=== PATIENT | female | born 1970 | race Caucasian/White ===

== ENCOUNTER 2016-12-24 19:59 | Emergency (ER) | payer BC ==
[2016-12-24 20:12] VITALS: BP 170/86
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
== END 2016-12-24 20:56 | disposition home or self-care (01) ==
LOC: UCCORT 19:59
DX: F41.9 Anxiety disorder, unspecified (principal); I10 Essential (primary) hypertension; F17.210 Nicotine dependence, cigarettes, uncomplicated
CPT/HCPCS: 99201; G0463

== ENCOUNTER 2019-03-22 18:26 | Emergency (ER) | payer BC ==
[2019-03-22 20:49] VITALS: BP 167/62
--- NOTE | 2019-03-22 21:12 | UC ---
Complaint Female HPI - HPI Summary HPI Summary: 48-year-old female presents with complaints of onset of dysuria, cloudy urine, hematuria yesterday. Patient is also requesting screening for sexually transmitted infections at this time. States she has been from her for quite a while but had decided to try to get back together and had vaginal intercourse with him approximately one week ago. She is concerned as she is unaware of his sexual partners while . Denies fever, chills, abdominal pain, nausea, vomiting, back or flank pain,urgency, vaginal discharge , vaginal lesions, or dyspareunia. - History Of Current Complaint Chief Complaint: UCGU Stated Complaint: URINARY Time Seen by Provider: 03/22/19 21:05 Hx Obtained From: Patient Hx Last Menstrual Period: unknown Pain Intensity: 0 - Allergies/Home Medications Allergies/Adverse Reactions: Allergies Allergy/AdvReac Type Severity Reaction Status Date / Time No Known Allergies Allergy Verified 03/22/19 20:49 PMH/Surg Hx/FS Hx/Imm Hx Cardiovascular History: Hypertension - Surgical History Surgical History: Yes Surgery Procedure, Year, and Place: tubal ligation. breast reduction. ablation - Family History Known Family History: Positive: Cardiac Disease, Hypertension, Diabetes - Social History Occupation: Employed Full-time Lives: With Family Alcohol Use: Occasionally Substance Use Type: None Smoking Status (MU): Heavy Every Day Tobacco Smoker Amount Used/How Often: 1 ppd Review of Systems All Other Systems Reviewed And Are Negative: Yes Constitutional: Negative: Fever, Chills Skin: Negative: Rash Respiratory: Positive: Negative Cardiovascular: Positive: Negative Gastrointestinal: Negative: Abdominal Pain, Vomiting, Nausea Genitourinary: Positive: Dysuria, Hematuria, Frequency. Negative: Urgency, Vaginal/Penile Itching, Vaginal/Penile Discharge, Ulceration/Lesion, Abnormal Bleeding Musculoskeletal: Positive: Negative Neurological: Positive: Negative Is Patient Immunocompromised?: No Physical Exam - Summary Physical Exam Summary: GENERAL APPEARANCE: Well developed, well nourished, alert and cooperative, and appears to be in no acute distress. CARDIAC: Normal S1 and S2. No S3, S4 or murmurs. Rhythm is regular. There is no peripheral edema, cyanosis or pallor. Extremities are warm and well perfused. Capillary refill is less than 2 seconds. Peripheral pulses intact. LUNGS: Clear to auscultation without rales, rhonchi, wheezing or diminished breath sounds. ABDOMEN: Positive bowel sounds. Soft, nondistended, nontender. No guarding or rebound. No masses or hepatosplenomegally. No CVA tenderness. MUSKULOSKELETAL: ROM intact to all extremities. No joint erythema or tenderness. Normal muscular development. Normal gait. SKIN: Skin normal color, texture and turgor with no lesions or eruptions. Triage Information Reviewed: Yes Vital Signs: Initial Vital Signs Temp 98.3 F 03/22/19 20:42 Pulse 86 03/22/19 20:42 Resp 18 03/22/19 20:42 BP 167/62 03/22/19 20:42 Pulse Ox 98 03/22/19 20:42 Vital Signs Reviewed: Yes Complaint Female Dx - Course Course Of Treatment: 48-year-old female presents with complaints of onset of dysuria, cloudy urine, hematuria yesterday. Patient is also requesting screening for sexually transmitted infections at this time. States she has been from her for quite a while but had decided to try to get back together and had vaginal intercourse with him approximately one week ago. She is concerned as she is unaware of his sexual partners while . Denies fever, chills, abdominal pain, nausea, vomiting, back or flank pain,urgency, vaginal discharge , vaginal lesions, or dyspareunia. Afebrile. Vital signs stable. Patient had an overall unremarkable exam. [id number] urinalysis showed 2+ leukocyte esterase and 2+ blood. Urine culture is pending. STI screening for gonorrhea, chlamydia, syphilis, and HIV were performed at the patient's request. She was counseled to avoid sexual intercourse until these results have returned and have recommended that she have follow-up testing as appropriate based on these results. I'll treat her empirically for a urinary tract infection with Macrobid 100 mg twice a day 10 days. She received the first dose of this in the clinic. She is to follow-up with her primary care provider in 3 days if symptoms are not improving. Anticipatory guidance and warning symptoms were reviewed with the patient. Verbalizes understanding and agrees with plan of care. - Differential Dx/Diagnosis Differential Diagnosis/HQI/PQRI: Pelvic Inflammatory Disease, Renal Colic, Sexually Transmitted Disease, Urinary Tract Infection Provider Diagnosis: UTI (urinary tract infection) Discharge ED - Sign-Out/Discharge Documenting (check all that apply): Patient Departure All imaging exams completed and their final reports reviewed: No Studies - Discharge Plan Condition: Stable Disposition: HOME Prescriptions: Nitrofurantoin Monohyd/M-Cryst [Macrobid 100 mg Capsule] 100 mg PO BID #9 cap Patient Education Materials: Urinary Tract Infection in Women (ED) Referrals: Enedina Nina PA [Primary Care Provider] - 3 Days Additional Instructions: Your urine test in the clinic today is suggestive of a urinary tract infection. We will start you on an antibiotic to treat for the infection. We will also send a urine culture today to see what bacteria grow out and make sure the antibiotic you were prescribed is appropriate to treat the infection. It will take 48-72 hours to get these results. We will contact you if there is any change in your treatment plan. Start Macrobid 100 mg 1 capsule twice a day for 5 days. You were given the first dose in the clinic. We have sent specimens to screen for possible sexually transmitted infections. It may take 48-72 hours for all these results to return. We will contact you if any of these tests are positive and start you on an appropriate treatment. Drink plenty of fluids. Avoid any sexual intercourse until your screening tests have returned. Follow up with your primary care provider in 3-5 days if symptoms persist. Seek immediate medical attention in the emergency room if you develop fever greater than 100.5 F, have severe abdominal pain, persistent vomiting, or any worsening of symptoms. - Billing Disposition and Condition Condition: STABLE Disposition: Home
[2019-03-22] MEDS ORDERED: Nitrofurantoin Macrocrystals* 50 MG CAP PO ONE (21:17)
[2019-03-23 14:15] LABS: HIV 4th Generation Nonreactive (Nonreactive)
[2019-03-24 13:09] LABS: Chlamydia trachomatis NAA Negative (Negative); Neisseria gonorrhoeae (GC) NAA Negative (Negative)
== END 2019-03-22 21:43 | disposition home or self-care (01) ==
LOC: UCCORT 18:26
DX: N39.0 Urinary tract infection, site not specified (principal); I10 Essential (primary) hypertension; F17.210 Nicotine dependence, cigarettes, uncomplicated
CPT/HCPCS: 36415; 81003; 86780; 87086; 87389; 87491; 87591; 99212; A9270-GY; G0463

== ENCOUNTER 2019-04-11 13:45 | Emergency (ER) | payer BC ==
[2019-04-11 14:33] VITALS: BP 155/65
--- NOTE | 2019-04-11 14:39 | UC ---
Complaint Female HPI - HPI Summary HPI Summary: Vaginal irritation, redness, swelling and mild itching started yesterday. Denies any discharge. Possible STD from partner? - History Of Current Complaint Chief Complaint: UCGeneralIllness Stated Complaint: PERSONAL Time Seen by Provider: 04/11/19 14:32 Hx Obtained From: Patient Hx Last Menstrual Period: uterine ablation ?: No Onset/Duration: Sudden Onset, Lasting Days Timing: Constant Severity Initially: Mild Severity Currently: Mild Pain Intensity: 2 - Allergies/Home Medications Allergies/Adverse Reactions: Allergies Allergy/AdvReac Type Severity Reaction Status Date / Time No Known Allergies Allergy Verified 04/11/19 14:27 Home Medications: Home Medications Ibuprofen TAB* [Motrin TAB* 400 MG] 400 mg PO Q6H PRN 04/11/19 [History Confirmed 04/11/19] PMH/Surg Hx/FS Hx/Imm Hx Previously Healthy: Yes - Surgical History Surgical History: Yes Surgery Procedure, Year, and Place: tubal ligation. breast reduction. ablation - Family History Known Family History: Positive: Cardiac Disease, Hypertension, Diabetes - Social History Alcohol Use: Occasionally Substance Use Type: None Smoking Status (MU): Heavy Every Day Tobacco Smoker Type: Cigarettes Amount Used/How Often: 1 ppd Review of Systems All Other Systems Reviewed And Are Negative: Yes Genitourinary: Positive: Vaginal/Penile Burning, Vaginal/Penile Tenderness Physical Exam Triage Information Reviewed: Yes Appearance: Well-Appearing, Well-Nourished, Pain Distress Vital Signs: Initial Vital Signs Temp 98.6 F 04/11/19 14:27 Pulse 89 04/11/19 14:27 Resp 16 04/11/19 14:27 BP 155/65 04/11/19 14:27 Pulse Ox 100 04/11/19 14:27 Vital Signs Reviewed: Yes Eye Exam: Normal ENT Exam: Normal Dental Exam: Normal Neck exam: Normal Respiratory Exam: Normal Respiratory: Positive: Chest non-tender, Lungs clear, Normal breath sounds Cardiovascular Exam: Normal Cardiovascular: Positive: RRR, No Murmur, Pulses Normal Abdomen Description: Positive: Nontender, No Organomegaly, Soft, CVA Tenderness (R) - neg, CVA Tenderness (L) - neg Bowel Sounds: Positive: Present Pelvic Exam: Positive: Other - deferred pelvic, urine obtained and patient self swabbed affirm Musculoskeletal Exam: Normal Neurological Exam: Normal Psychological Exam: Normal Skin Exam: Normal Complaint Female Dx - Course Course Of Treatment: hx obtained, exam performed ,meds reviewed, tested for STD and treated for vaginitits - Differential Dx/Diagnosis Differential Diagnosis/HQI/PQRI: Sexually Transmitted Disease Provider Diagnosis: Vaginitis Discharge ED - Sign-Out/Discharge Documenting (check all that apply): Patient Departure All imaging exams completed and their final reports reviewed: No Studies - Discharge Plan Condition: Stable Disposition: HOME Prescriptions: Fluconazole 150 MG TAB* [Diflucan 150 MG TAB*] 150 mg PO UC ONCE #1 tablet Patient Education Materials: Vaginitis (ED) Referrals: Enedina Nina PA [Primary Care Provider] - Additional Instructions: 1. take the medication as prescribed. 2. avoid sexual activity until results from test are obtained. 3. We call with any positive results, if you dont hear from us in 3 days, please give us a call for results. - Billing Disposition and Condition Condition: STABLE Disposition: Home - Attestation Statements Provider Attestation: I was available for consult. This patient was seen by the PATY. The patient was not presented to , seen by or examined by ca -Kalen Camarillo MD
--- NOTE | 2019-04-13 07:23 | UC ---
- Progress Note Progress Note: please call the pt. with her lab results + Gardnerella, + Trichomonas will call in Flagyl please have her partner be seen for treatment Course/Dx - Diagnoses Provider Diagnoses: Vaginitis Discharge ED - Sign-Out/Discharge Documenting (check all that apply): Patient Departure All imaging exams completed and their final reports reviewed: No Studies - Discharge Plan Condition: Stable Disposition: HOME Prescriptions: Fluconazole 150 MG TAB* [Diflucan 150 MG TAB*] 150 mg PO UC ONCE #1 tablet Patient Education Materials: Vaginitis (ED) Referrals: Enedina Nina PA [Primary Care Provider] - Additional Instructions: 1. take the medication as prescribed. 2. avoid sexual activity until results from test are obtained. 3. We call with any positive results, if you dont hear from us in 3 days, please give us a call for results. - Billing Disposition and Condition Condition: STABLE Disposition: Home
[2019-04-13 12:11] LABS: Chlamydia trachomatis NAA Negative (Negative); Neisseria gonorrhoeae (GC) NAA Negative (Negative)
== END 2019-04-11 15:18 | disposition home or self-care (01) ==
LOC: UCCORT 13:45
DX: N76.0 Acute vaginitis (principal)
CPT/HCPCS: 87480; 87491; 87510; 87591; 87660; 99212; G0463

== ENCOUNTER 2019-06-11 12:48 | Emergency (ER) | payer BC ==
--- NOTE | 2019-06-11 13:16 | UC ---
Complaint Female HPI - HPI Summary HPI Summary: 48 yo female presents with 2 concerns today. 1) She tells me that over the last 5 days she has had sinus pain/pressure/ congestion, sore throat, and intermittently productive cough with yellow phlegm. She has been taking mucinex OTC with no relief. Denies fever, chills, SOB. She smokes daily. 2) Over the last 2 days has noticed urinary burning and frequency. She has had UTIs in the past and this feels the same. She recently had intercourse with a new partner within the last week and is concerned about STDs. She is requesting an STD panel today. She denies abdominal pain, n/v, flank pain, vaginal bleeding or discharge. - History Of Current Complaint Stated Complaint: SINUS COMPLAINT,URINARY COMPLAINT Time Seen by Provider: 06/11/19 13:15 Hx Obtained From: Patient Hx Last Menstrual Period: uterine ablation Onset/Duration: Gradual Onset Severity Initially: Mild Severity Currently: Moderate Pain Intensity: 5 Pain Scale Used: 0-10 Numeric - Allergies/Home Medications Allergies/Adverse Reactions: Allergies Allergy/AdvReac Type Severity Reaction Status Date / Time No Known Allergies Allergy Verified 06/11/19 13:22 Home Medications: Home Medications Dm/PE/Acetaminophen/Chlorphenr [Flaca-Campbell Plus Cold &] 1 cap PO ONCE [History Confirmed 06/11/19] PMH/Surg Hx/FS Hx/Imm Hx Cardiovascular History: Hypertension - Surgical History Surgical History: Yes Surgery Procedure, Year, and Place: tubal ligation. breast reduction. ablation - Family History Known Family History: Positive: Cardiac Disease, Hypertension, Diabetes - Social History Occupation: Employed Full-time Lives: Alone Alcohol Use: Occasionally Substance Use Type: None Smoking Status (MU): Heavy Every Day Tobacco Smoker Type: Cigarettes Amount Used/How Often: 1 ppd Review of Systems All Other Systems Reviewed And Are Negative: No Constitutional: Positive: Negative Skin: Positive: Negative Eyes: Positive: Negative ENT: Positive: Sore Throat, Nasal Discharge, Sinus Congestion, Sinus Pain/ Tenderness Respiratory: Positive: Cough Cardiovascular: Positive: Negative Gastrointestinal: Positive: Negative Genitourinary: Positive: Dysuria Neurovascular: Positive: Negative Neurological: Positive: Negative Psychological: Positive: Negative Physical Exam - Summary Physical Exam Summary: GENERAL: NAD. WDWN. No pain distress. SKIN: No rashes, sores, lesions, or open wounds. HEENT: Head: AT/NC Eyes: EOM intact. Conjunctiva clear without inflammation or discharge. Ears: Hearing grossly normal. TMs intact, no bulging, erythema, or edema. Nose: Nasal mucosa mildly swollen and erythematous with yellow/ clear discharge. TTP maxillary > frontal sinus. Positive post nasal drip Throat: Posterior oropharynx without exudates, erythema, or tonsillar enlargement. Uvula midline. NECK: Supple. Nontender. No lymphadenopathy. CHEST: CTAB. No r/r/w. No accessory muscle use. Breathing comfortably and in no distress. CV: RRR. Pulses intact. ABDOMEN: Soft. NTTP. No distention or guarding. No CVA tenderness. Bowel sounds present NEURO: Alert. PSYCH: Age appropriate behavior. Triage Information Reviewed: Yes Vital Signs: Vital Signs: Temp Pulse Resp BP Pulse Ox 98.1 F 90 15 160/75 99 06/11/19 13:20 06/11/19 13:20 06/11/19 13:20 06/11/19 13:20 06/11/19 13:20 Vital Signs Reviewed: Yes Complaint Female Dx - Course Course Of Treatment: UA with pos nitrite and 2+ leuks and 2+ blood. Will treat UTI and sinusitis with augmentin. Urine sent for trich and GC/C. Labs drawn for HIV, hepatitis, RPR, and herpes and will f/u with results. - Differential Dx/Diagnosis Provider Diagnosis: UTI (urinary tract infection), Sinusitis, Contact with new sexual partner Discharge ED - Sign-Out/Discharge Documenting (check all that apply): Patient Departure All imaging exams completed and their final reports reviewed: No Studies - Discharge Plan Condition: Stable Disposition: HOME Prescriptions: Amoxicillin/Clavulanate TAB* [Augmentin TAB 875*] 875 mg PO BID #14 tab Patient Education Materials: Urinary Tract Infection in Women (ED), Sinusitis ( ED) Referrals: Enedina Nina PA [Primary Care Provider] - Additional Instructions: If you develop a fever, shortness of breath, chest pain, new or worsening symptoms - please call your PCP or go to the ED immediately. Your blood pressure was high at todays visit. Please see your primary provider within 4 weeks for recheck and re-evaluation. We should have results of your bloodwork in 2-3 days --- please call to ask about your results if you have not heard from our clinic. - Billing Disposition and Condition Condition: STABLE Disposition: Home - Attestation Statements Provider Attestation: I was available for consult. This patient was seen by the PATY. The patient was not presented to, seen by, or examined by me. -Hung
[2019-06-11 13:22] VITALS: BP 160/75
[2019-06-11 22:26] LABS: Hepatitis C Antibody Negative (Negative)
[2019-06-11 23:39] LABS: Hepatitis B Surface Antigen Nonreactive (Nonreactive)
[2019-06-11 23:44] LABS: HIV 4th Generation Nonreactive (Nonreactive)
[2019-06-14 13:40] LABS: Chlamydia trachomatis NAA Negative (Negative); Neisseria gonorrhoeae (GC) NAA Negative (Negative)
[2019-06-14 14:37] LABS: Herpes Simplex Virus I IgG AB Positive (Negative); Herpes Simplex Virus II IgG AB Negative (Negative)
[2019-06-14 20:52] LABS: Trichomonas vag Ur RNA Female Negative (Negative)
== END 2019-06-11 13:51 | disposition home or self-care (01) ==
LOC: UCCORT 12:48
DX: J32.9 Chronic sinusitis, unspecified (principal); N39.0 Urinary tract infection, site not specified; I10 Essential (primary) hypertension; F17.210 Nicotine dependence, cigarettes, uncomplicated
CPT/HCPCS: 36415; 80074; 81002; 86695; 86696; 86780; 87077; 87086; 87186; 87389; 87491; 87591; 87661; 99201; G0463